=== PATIENT | female | born 1935 | race Caucasian/White ===

== ENCOUNTER 2024-04-22 07:04 | Day surgery (SDC) | payer MEDICARE, OTHER ==
[~2024-04-22] VITALS: Ht 157.5 cm; Wt 54.0 kg
[2024-04-22] MEDS ORDERED: LIDOCAINE 2% 11 ML JELLY TP ONE (07:05)
[2024-04-22] MEDS ORDERED: LIDOCAINE 4% 50 ML SOLUTION TP ONE (07:05)
[2024-04-22] MEDS ORDERED: ALBUTEROL SULFATE 2.5 MG/0.5 ML NEB SOLUTION NEB ONE (07:05)
[2024-04-22] MEDS ORDERED: BENZOCAINE 20% 50 MCG/SPRAY 57 GM TP ONE (07:05)
[2024-04-22] MEDS: SODIUM CHLORIDE 0.9% 1,000 ML IV ONE (08:16)
[2024-04-22 08:36] LABS: GLUCOMETER DEV NAME(LOC) SDS.; GLUCOSE,POINT OF CARE 96 MG/DL (70-110)
[2024-04-22] MEDS ORDERED: FentaNYL CITRATE PF 100 MCG/2 ML VIAL ONE (09:00)
[2024-04-22] MEDS ORDERED: MIDAZOLAM HCL 2 MG/2 ML VIAL ONE (09:01)
[2024-04-22 09:55] VITALS: PULSE 66; RESP 20; O2SAT 96
[2024-04-22] MEDS ORDERED: MethylPREDNISolone SOD SUCC 125 MG/2 ML VIAL ONE (10:09)
[2024-04-22] MEDS ORDERED: MethylPREDNISolone SOD SUCC 125 MG/2 ML VIAL IVP ONE (11:00)
[2024-04-22] MEDS: MethylPREDNISolone SOD SUCC 125 MG/2 ML VIAL IVP ONE (11:09)
== END 2024-04-22 14:25 | disposition home or self-care (01) ==
LOC: SURGERY 07:04
PROVIDERS: ATTEND Internal Medicine Critical Care Medicine
DX: R05.3 Chronic cough (principal); R04.2 Hemoptysis; J98.09 Other diseases of bronchus, not elsewhere classified; J84.10 Pulmonary fibrosis, unspecified; J98.8 Other specified respiratory disorders; J45.909 Unspecified asthma, uncomplicated; I10 Essential (primary) hypertension; E11.9 Type 2 diabetes mellitus without complications; E78.00 Pure hypercholesterolemia, unspecified; J90 Pleural effusion, not elsewhere classified; Z85.21 Personal history of malignant neoplasm of larynx; Z90.49 Acquired absence of other specified parts of digestive tract
CPT/HCPCS: 31623; 82962; 87206; 87101; 87220; 87070; 88108; 31624; 71045; 71250; 87015; J3010; J2250; J2919; J7613; Z7610

== ENCOUNTER → 2025-05-14 | Day surgery (SDC) | payer MEDICARE, OTHER ==
[~2025-05-14] VITALS: Ht 157.5 cm; Wt 54.9 kg
[~2025-05-14] MED LIST: ALBUTEROL SULFATE 2.5 MG/0.5 ML NEB SOLUTION NEB ONE; ASPI-1450 PO; BENZOCAINE 20% 50 MCG/SPRAY 57 GM ONE; CARV12 PO; CILO100T3 PO; EMPA10TA3 PO; FentaNYL CITRATE PF 100 MCG/2 ML VIAL ONE; HYDR25TA84 PO; LIDOCAINE 2% 11 ML JELLY ONE; LIDOCAINE 4% 50 ML SOLUTION ONE; LOSA-382 PO; MIDAZOLAM HCL 2 MG/2 ML VIAL ONE; PANT-31 PO; SITA50 PO; SODIUM CHLORIDE 0.9% 1,000 ML ONE
[2025-05-14] MEDS: SODIUM CHLORIDE 0.9% 1,000 ML IV ONE (07:59)
[2025-05-14 08:31] LABS: GLUCOMETER DEV NAME(LOC) SDS.; GLUCOSE,POINT OF CARE 124 MG/DL (70-110)
[2025-05-14 09:59] VITALS: PULSE 72; RESP 18; O2SAT 98
== END | disposition home or self-care (01) ==
LOC: SDS 07:05
PROVIDERS: ATTEND Internal Medicine Critical Care Medicine
DX: R05.3 Chronic cough (principal); R49.0 Dysphonia; R04.2 Hemoptysis; R06.1 Stridor; I10 Essential (primary) hypertension; E11.9 Type 2 diabetes mellitus without complications; E78.00 Pure hypercholesterolemia, unspecified; J45.909 Unspecified asthma, uncomplicated; Z79.82 Long term (current) use of aspirin; Z79.84 Long term (current) use of oral hypoglycemic drugs; Z79.899 Other long term (current) drug therapy; Z90.49 Acquired absence of other specified parts of digestive tract; Z98.890 Other specified postprocedural states
CPT/HCPCS: 31623; 82962; 87206; 87101; 87220; 87070; 88108; 31624; 71045; 87015; J3010; J2250; J2919; J7030; J7613; Z7610